=== PATIENT | female | born 1955 | race Caucasian/White ===

== ENCOUNTER 2023-08-03 09:50 | Emergency (ER) | payer MEDICARE ==
[~2023-08-03] VITALS: Ht 172.7 cm; Wt 89.0 kg
[2023-08-03 10:07] VITALS: TEMP 99.1
[2023-08-03] MEDS ORDERED: ondansetron/PF 4mg/2ml inj IV ONE (10:20)
[2023-08-03] MEDS ORDERED: HYDROmorphone 1 mg/ml syringe IV ONE (10:20)
[2023-08-03 10:49] LABS: INR 3.2 INR; PROTHROMBIN TIME 31.6 SECONDS (9.0-12.0)
[2023-08-03 10:56] LABS: ALANINE AMINOTRANSFERASE 26 U/L (12-78); ALBUMIN 3.8 G/DL (3.4-5.0); ALBUMIN/GLOBULIN RATIO 1.3 (1.1-1.5); ALKALINE PHOSPHATASE 93 IU/L (46-116); ANION GAP 7 (8-16); ASPARTATE AMINO TRANSFERASE 17 U/L (10-37); BILIRUBIN,TOTAL 0.6 MG/DL (0.1-1.0); BLOOD UREA NITROGEN 17 MG/DL (7-18); BUN/CREATININE RATIO 14.5 (10.0-20.0); CALCIUM 9.9 MG/DL (8.5-10.1); CHLORIDE 100 MMOL/L (99-107); CREATININE 1.17 MG/DL (0.40-0.90); GLUCOSE 132 MG/DL (70-104); POTASSIUM 3.8 MMOL/L (3.5-5.1); SODIUM 134 MMOL/L (135-145); TOTAL CARBON DIOXIDE 26.6 MMOL/L (24-32); TOTAL PROTEIN 6.7 G/DL (6.4-8.2); eCRCL 48 ML/MIN; eGFR 46 ML/MIN
--- NOTE | 2023-08-03 11:54 | NUR ---
Right ankle xray refused by patient and .
[2023-08-03 12:47] VITALS: BP 118/89; PULSE 64; RESP 16; O2SAT 97
== END 2023-08-03 12:37 | disposition home or self-care (01) ==
LOC: ER 09:51
DX: S93.492A Sprain of other ligament of left ankle, initial encounter (principal); X58.XXXA Exposure to other specified factors, initial encounter; Y93.89 Activity, other specified; Y92.89 Other specified places as the place of occurrence of the external cause; Y99.8 Other external cause status
CPT/HCPCS: 36415; 73610; 80053; 85610; 93005; 96374; 96375; 99285; J1170; J2405; L4360